=== PATIENT | female | born 1950 | race Hispanic/Latino ===

== ENCOUNTER → 2018-08-03 | Outpatient (CLI) | payer MEDICARE | END | disposition home or self-care (01) | LOC: RAH 12:44 | PROVIDERS: ATTEND Family Medicine | DX: M79.89 Other specified soft tissue disorders (principal) | CPT/HCPCS: 93971 ==

== ENCOUNTER 2021-08-20 07:09 | Day surgery (SDC) | payer OTHER ==
[2021-08-18 08:59] LABS: BASOPHILS % (AUTO) 0.3 % (0.0-5.0); EOSINOPHILS % (AUTO) 0.5 % (0.0-8.0); HEMATOCRIT 38.9 % (36-48); LYMPHOCYTES % (AUTO) 13.5 % (21.0-51.0); MEAN CORPUSCULAR HEMOGLOBIN 31.1 pg (27.0-33.0); MEAN CORPUSCULAR HGB CONC 34.4 g/dL (32.0-36.0); MEAN CORPUSCULAR VOLUME 90.3 fL (79-99); MONOCYTES % (AUTO) 10.7 % (3.0-13.0); NEUTROPHILS % (AUTO) 74.7 % (40.0-77.0); PLATELET COUNT (AUTO) 275 K/uL (130-400); RED BLOOD CELL COUNT(AUTO) 4.31 MIL/uL (4.00-5.50); RED CELL DISTRIBUTION WIDTH 12.4 % (11.0-15.5); WHITE BLOOD COUNT (AUTO) 7.5 K/uL (4.8-10.8)
[2021-08-18 09:01] LABS: APPEARANCE,URINE Clear (CLEAR); BILIRUBIN,URINE Negative (NEGATIVE); COLOR,URINE Yellow (YELLOW); GLUCOSE, URINE (UA) Negative (NEGATIVE); KETONES,URINE Negative (NEGATIVE); LEUKOCYTE ESTERASE ,URINE Negative (NEGATIVE); NITRATE,URINE Negative (NEGATIVE); OCCULT BLOOD,URINE Negative (NEGATIVE); PROTEIN,URINE Negative (NEGATIVE)
[2021-08-18 09:14] LABS: CREATININE 1.4 mg/dL (0.5-1.5); POTASSIUM 4.1 mmol/L (3.5-5.1)
[2021-08-18 09:26] LABS: INR 2.1 (0.85-1.15); PROTHROMBIN TIME 21.4 SEC (9.6-11.6)
[2021-08-18 09:27] LABS: PARTIAL THROMBOPLASTIN TIME 41.6 SEC (26.3-35.5)
[2021-08-19 14:03] VITALS: BP 146/60
[2021-08-20] VITALS (11 sets, daily range): BP systolic 110–146; BP diastolic 46–68
[~2021-08-20] VITALS: Ht 149.9 cm; Wt 84.6 kg
[~2021-08-20 07:09] MED LIST: ALEN70TA80 PO; ATOR20TA65 PO; BACL10TA PO; DILT180T12 PO; DIPH25 PO; FAMO-136 PO; FLEC100T3 PO; FLUT1BLS8 IH; GABA-529 PO; HYDR12.54 PO; LATA7.5D OU; LEVA0.6333 IH; LISI2.5T13 PO; NITR0.4T50 SL; PRED20TA3 PO; WARF-57 PO; WARF2.5T85 PO
[2021-08-20 07:52] LABS: INR 1.31 (0.85-1.15); PROTHROMBIN TIME 13.9 SEC (9.6-11.6)
[2021-08-20 07:53] LABS: PARTIAL THROMBOPLASTIN TIME 32.5 SEC (26.3-35.5)
[2021-08-20] MEDS ORDERED: 0.9%NACL 1000ML 1,000 ML IV SCH ×2 (09:30→11:30)
[2021-08-20] MEDS ORDERED: BIVALIRUDIN 250 MG/VIAL IV ONE (09:46)
[2021-08-20] MEDS ORDERED: HEPARIN 10,000 UNIT/10ML (1,000 UNIT/ML) VIAL ONE (09:46)
[2021-08-20] MEDS ORDERED: IOHEXOL 350 MG/ML 100ML INFUS..BTL IV ONE (09:47)
[2021-08-20] MEDS ORDERED: NICARDIPINE 25MG INJ IV ONE (09:47)
[2021-08-20] MEDS ORDERED: LIDOCAINE HCL 400MG/20ML VIAL ONE (09:47)
[2021-08-20] MEDS ORDERED: NITROGLYCERIN 2 MG VIAL IV ONE (09:47)
[2021-08-20] MEDS ORDERED: IOHEXOL-350 50ML VIAL IV ONE (09:47)
[2021-08-20] MEDS ORDERED: FENTANYL CITRATE PF 50 MCG/1 ML 2ML VIAL ONE (10:32)
[2021-08-20] MEDS ORDERED: MIDAZOLAM HCL 1 MG/ML 2ML VIAL ONE (10:32)
[2021-08-20] MEDS ORDERED: LABETALOL 20MG VIAL IV ONE (11:06)
== END 2021-08-20 17:15 | disposition home or self-care (01) ==
LOC: DAH 07:09
PROVIDERS: ATTEND Internal Medicine Cardiovascular Disease
DX: I25.119 Atherosclerotic heart disease of native coronary artery with unspecified angina pectoris (principal); E11.22 Type 2 diabetes mellitus with diabetic chronic kidney disease; I13.0 Hypertensive heart and chronic kidney disease with heart failure and stage 1 through stage 4 chronic kidney disease, or unspecified chronic kidney disease; N18.30 Chronic kidney disease, stage 3 unspecified; I50.32 Chronic diastolic (congestive) heart failure; I48.0 Paroxysmal atrial fibrillation; E78.5 Hyperlipidemia, unspecified; I87.2 Venous insufficiency (chronic) (peripheral); Z79.01 Long term (current) use of anticoagulants; Z98.890 Other specified postprocedural states; Z79.899 Other long term (current) drug therapy; Z88.6 Allergy status to analgesic agent; Z88.3 Allergy status to other anti-infective agents; Z86.73 Personal history of transient ischemic attack (TIA), and cerebral infarction without residual deficits; Z79.84 Long term (current) use of oral hypoglycemic drugs
CPT/HCPCS: 36415 ×2; 71045; 80048; 81003; 82948 ×2; 85025; 85610 ×2; 85730 ×2; 93005; 93458; A4215 ×2; A4216; A4221; A4222; A4223 ×3; A4335; A4554; A4606; A4663; C1760; C1894 ×2; J1644; J2250; J3490 ×3; Q9965; Q9967 ×2; 99156; 99157; J0583; J3010

== ENCOUNTER → 2024-10-26 | Outpatient (CLI) | payer OTHER ==
[~2024-10-26] MED LIST changes: -DIPH25 PO; -FAMO-136 PO; -NITR0.4T50 SL; -PRED20TA3 PO
--- NOTE | 2024-10-27 07:30 | HMCSR ---
APPROVED REPORT Bilateral Lower Extremity Venous Study for DVT., Venous Competence. Indications PVD Vein Imaging CFV (R): Normal flow, augmentation and compression. No evidence of DVT.5.8mm 1261ms SFJ (R): Normal flow, augmentation and compression. No evidence of DVT. FEM (R): Normal flow, augmentation and compression. No evidence of DVT. POP (R): Normal flow, augmentation and compression. No evidence of DVT. DFV (R): Normal flow, augmentation and compression. No evidence of DVT. PTV (R): Normal flow, augmentation and compression. No evidence of DVT. Peroneals (R): Normal flow, augmentation and compression. No evidence of DVT. CFV (L): Normal flow, augmentation and compression. No evidence of DVT. 10.3mm 1117ms SFJ (L): Normal flow, augmentation and compression. No evidence of DVT. FEM (L): Normal flow, augmentation and compression. No evidence of DVT. POP (L): Normal flow, augmentation and compression. No evidence of DVT. DFV (L): Normal flow, augmentation and compression. No evidence of DVT. PTV (L): Normal flow, augmentation and compression. No evidence of DVT. Peroneals (L): Normal flow, augmentation and compression. No evidence of DVT. Technologist Impression Deep veins of bilateral lower extremities appear patent and compressible without thrombus. Deep vein reflux seen in RCFV and LCFV Superficial venous insufficiency seen on RGSV and LSSV RGSV Junction 3.6mm 1433ms Thigh 3.1mm 0.0ms knee 3.7mm 0.0ms Calf 1.8mm 2206ms RSSV Prox 2.9mm 0.0ms Mid 1.7mm 0.0ms LGSV Junction 4.9mm 0.0ms Thigh 2.5mm 0.0ms knee 2.0mm 0.0ms calf 1.6mm 606ms LSSV Prox 2.4mm 161ms Mid 1.8mm 706ms Conclusion Deep vein reflux seen in RCFV and LCFV Superficial venous insufficiency seen on RGSV and LSSV Consider formal venography with IVUS if clinically indicated Conclusion Deep vein reflux seen in RCFV and LCFV Superficial venous insufficiency seen on RGSV and LSSV Consider formal venography with IVUS if clinically indicated
--- NOTE | 2024-10-27 07:31 | HMCSR ---
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 (R) 73.4cm/sec, Biphasic, Prof Fem Art. (L) 81.6cm/sec, Biphasic, Fem Art Prox. (R) 84.0cm/sec, Biphasic, Fem Art Prox. (L) 122.3cm/sec, Biphasic, Fem Art Mid. (R) 108.8cm/sec, Biphasic, Fem Art Mid. (L) 132.1cm/sec, Biphasic, Fem Art Dist (R) 100.5cm/sec, Biphasic, Fem Art Dist. (L) 112.6cm/sec, Biphasic, Pop Art(AK) (R) 79.9cm/sec, Biphasic, Pop Art (AK) (L) 70.0cm/sec, Biphasic, Pop Art (Fossa)(R) 83.4cm/sec, Biphasic, Pop Art (Fossa) (L) 63.7cm/sec, Biphasic, Pop Art(BK) (R) 76.3cm/sec, Biphasic, Pop Art (BK) (L) 82.5cm/sec, Biphasic, GAS FLOW REGULATOR Prox. (R) 69.1cm/sec, Biphasic, GAS FLOW REGULATOR Prox. (L) 71.8cm/sec, Monophasic, GAS FLOW REGULATOR Mid. (R) 75.4cm/sec, Biphasic, GAS FLOW REGULATOR Mid. (L) 60.1cm/sec, Monophasic, GAS FLOW REGULATOR Dist. (R) 79.0cm/sec, Biphasic, GAS FLOW REGULATOR Dist. (L) 57.4cm/sec, Monophasic, Per Art Prox. (R) 18.6cm/sec, Monophasic, Per Art Prox. (L) 64.6cm/sec, Biphasic, Per Art Mid. (R) 12.9cm/sec, Monophasic, Per Art Mid. (L) 70.0cm/sec, Biphasic, Per Art Dist. (R) 39.5cm/sec, Monophasic, Per Art Dist. (L) 82.5cm/sec, Monophasic, BETTINA Prox. (R) 78.7cm/sec, Biphasic, BETTINA Prox. (L) 52.0cm/sec, Biphasic, BETTINA Mid. (R) 64.2cm/sec, Biphasic BETTINA Mid. (L) 44.0cm/sec, Monophasic, BETTINA Dist. (R) 37.6cm/sec, Biphasic, BETTINA Dist. (L) 35.0cm/sec, Monophasic, Technologist Impression Suggestive of infra-popliteal in the bilateral lower extremieis. Conclusion Moderate-severe infrapopliteal PID Clinical correlation recommended Conclusion Moderate-severe infrapopliteal PID Clinical correlation recommended
== END | disposition home or self-care (01) ==
LOC: SHCH 14:37
PROVIDERS: ATTEND Internal Medicine Cardiovascular Disease
DX: I73.9 Peripheral vascular disease, unspecified (principal); I87.2 Venous insufficiency (chronic) (peripheral); I87.1 Compression of vein
CPT/HCPCS: 93925; 93970